=== PATIENT | female | born 1950 | race Caucasian/White ===

== ENCOUNTER → 2016-06-14 | Outpatient (CLI) | payer MEDICARE, MEDICAID ==
[~2016-06-14] MED LIST: ASPI325T4; CEFP500T4 PO; DM/P295L13; LISI40TA; MTF500T; PRD20T PO; TRAM50TA2 PO; TRIA16.5 NS
--- NOTE | 2016-06-14 19:06 | Diagnostic Imaging Report ---
INDICATION: Digital mammogram bilateral screening. This study was compared to the prior exams of 03/27/14, 01/31/13 and 01/31/12. At this time, there are no current complaints. The current study was also evaluated with a Computer Aided Detection (CAD) system. FINDINGS: The fibroglandular tissue in both breasts is heterogeneously dense. This does limit the sensitivity of this exam. The previous study did show a small group of microcalcifications deep in the medial aspect of the right breast. These calcifications are somewhat more conspicuous on this exam but still have a generally benign appearance. There is no primary or secondary sign of malignancy involving either breast. IMPRESSION: 1. There is no evidence of malignancy. 2. The patient should have her annual bilateral screening mammogram on schedule in June of 2017. ACR BI-RADS Category 1: Negative. Result letter will be mailed to the patient. Note: At least 10% of breast cancer is not imaged by mammography. Dictated by: Dictated on workstation # [id number]
== END ==
LOC: RAD 10:04
PROVIDERS: ATTEND Nurse Practitioner Community Health
DX: Z12.31 Encounter for screening mammogram for malignant neoplasm of breast (principal)
CPT/HCPCS: 77067

== ENCOUNTER 2017-05-02 05:46 | Outpatient (CLI) | payer MEDICARE, MEDICAID ==
[~2017-05-02] VITALS: Ht 160 cm; Wt 77.1 kg
[2017-05-02] MEDS ORDERED: TRAM50TA2 PO (10:23)
[2017-05-02] MEDS ORDERED: ASPI-999 PO (10:23)
[2017-05-02] MEDS ORDERED: EXEN2VIA SQ (10:23)
[2017-05-02] MEDS ORDERED: ATOR20TA66 PO (10:23)
[2017-05-02] MEDS ORDERED: LISI-552 PO (10:24)
== END 2017-05-02 10:28 ==
LOC: PREOP 05:46
PROVIDERS: ATTEND Surgery
DX: Z01.818 Encounter for other preprocedural examination (principal); R19.5 Other fecal abnormalities

== ENCOUNTER 2017-05-08 10:04 | Day surgery (SDC) | payer MEDICARE, MEDICAID ==
[~2017-05-08] VITALS: Ht 160 cm; Wt 77.1 kg
[~2017-05-08 10:04] MED LIST changes: +ASPI-999 PO; +ATOR20TA66 PO; +EXEN2VIA SQ; +LISI-552 PO
[2017-05-08] MEDS ORDERED: NS IV 500 ML 500 ML IV PRN (10:11)
[2017-05-08] MEDS ORDERED: NS IV 500 ML 500 ML ONE (10:12)
--- OUTSIDE RECORDS SUMMARY | 2017-05-08 10:19 | XMS REPORT ---
Author Author YOUSIF LEWIS Organization [facility] Address [address] [place] [address] Care Team Providers Care Digital Data Analyst Name Role Phone YOUSIF LEWIS Unavailable PROBLEMS Type Condition ICD9-CM Code [id number] Code Onset Dates Condition Status SNOMED Code Problem Diabetes E11.9 Active 572035423 Problem Chronic pain syndrome G89.4 Active 477877305 Problem Eye exam normal Z01.00 Active 239393134 Problem Tobacco abuse Z72.0 Active 33332525 Problem Neuropathy G62.9 Active 304289476 ALLERGIES Substance Reaction Event Type Date Status N.K.D.A. Unknown Non Drug Allergy Feb, Unknown SOCIAL HISTORY No smoking Hx information available PLAN OF CARE Activity Details Follow Up 3 Months Reason:DM VITAL SIGNS Height 63 in 2016-02-24 Weight 168.2 lbs 2016-02-24 Temperature 98.3 degrees Fahrenheit 2016-02-24 Heart Rate 88 bpm 2016-02-24 Respiratory Rate 20 2016-02-24 BMI 29.79 kg/m2 2016-02-24 Blood pressure systolic 130 mmHg 2016-02-24 Blood pressure diastolic 80 mmHg 2016-02-24 MEDICATIONS Medication Instructions Dosage Frequency Start Date End Date Duration Status MetFORMIN HCl ER 500 MG Orally Once a day 1 tablet with evening meal 24h Nov, Active Aspir-81 81 MG Orally Once a day 1 tablet 24h Active MiraLax - Orally Once a day 17gm 24h Feb, Jun, 30 days Active Loratadine 10 mg 1 tablet by Oral route 1 time per day Dec, Active Bydureon 2 MG Subcutaneous once weekly 2mg Nov, Active tramadol 50 mg by oral route 2 times a day 2 tablets 12h May, 28 days Active Ibuprofen 600 MG Orally every 8 hours, PRN 1 tablet Nov, Active Lisinopril 20 mg 1 tablet by Oral route 1 time per day Apr, Active RESULTS Name Result Date Reference Range A1C (IN HOUSE) 2016-02-24 A1C IN HOUSE 6.2 4.3 - 5.6 % Previous A1c 8.8 Lot [id number] Exp date PROCEDURES Procedure Date Ordered Related Diagnosis Body Site GLYCATED HEMOGLOBIN TEST Feb 24, 2016 [facility] VISIT ESTABLISHED PATIENT Feb 24, 2016 Office Visit, Est Pt., Level 3 Feb 24, 2016 IMMUNIZATIONS No Known Immunizations
--- OUTSIDE RECORDS SUMMARY | 2017-05-08 10:19 | XMS REPORT ---
Author Author YOUSIF LEWIS [facility] Address [address] [place] [address] Care Team Providers Care Rn Integrity Name Role Phone YOUSIF LEWIS Unavailable PROBLEMS Type Condition ICD9-CM Code PAQ04-KT Code Onset Dates Condition Status SNOMED Code Problem Diabetes E11.9 Active 542592563 Problem Chronic pain syndrome G89.4 Active 613224122 Problem Eye exam normal Z01.00 Active 676355030 Problem Tobacco abuse Z72.0 Active 86295180 Problem Neuropathy G62.9 Active 668603325 ALLERGIES Unknown Allergies SOCIAL HISTORY No smoking Hx information available PLAN OF CARE VITAL SIGNS MEDICATIONS Unknown Medications RESULTS No Results PROCEDURES No Known procedures IMMUNIZATIONS No Known Immunizations
--- OUTSIDE RECORDS SUMMARY | 2017-05-08 10:20 | XMS REPORT ---
Author Author YOUSIF LEWIS Organization [employer] Address Unknown Phone Unavailable Care Team Providers Care Student Specialist Name Role Phone YOUSIF LEWIS CP Unavailable Allergies No Known Allergies Problems Problem Type Condition Code Onset Dates Condition Status Problem Type 2 diabetes mellitus without complication, without long-term current use of insulin E11.9 Active Problem Neuropathy G62.9 Active Problem Tobacco abuse Z72.0 Active Assessment Arthralgia, unspecified joint M25.50 Active Medications Medication Code System Code Instructions Start Date End Date Status Dosage tramadol NDC 0 50 mg by oral route 2 times a day May 27, 2014 2 tablets Results No Known Results Summary Purpose [employer] Submission
--- OUTSIDE RECORDS SUMMARY | 2017-05-08 10:20 | XMS REPORT ---
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
--- OUTSIDE RECORDS SUMMARY | 2017-05-08 10:20 | XMS REPORT ---
Author Author YOUSIF LEWIS Organization [employer] Address Unknown Phone Unavailable Care Team Providers Care Auto Service Station Attendant Name Role Phone YOUSIF LEWIS CP Unavailable [...] Status Dosage tramadol NDC 0 50 mg NEEDS AN APPT FOR FURTHER REFILLS May 27, 2014 take 1 tablet by Oral route 3 times per day as needed PRN pain Results No Known Results Summary Purpose [employer] Submission
--- OUTSIDE RECORDS SUMMARY | 2017-05-08 10:20 | XMS REPORT ---
Author Author YOUSIF LEWIS [facility] [employer] Address Unknown Phone Unavailable Care Team Providers Care Process Lead Name Role Phone YOUSIF LEWIS Unavailable Allergies, Adverse Reactions, Alerts Substance Reaction Event Type N.K.D.A. Info Not Available Non Drug Allergy Problems Problem Type Condition Code Onset Dates Condition Status Problem Type 2 diabetes mellitus without complication, without long-term current use of insulin E11.9 Active Problem Neuropathy G62.9 Active Problem Tobacco abuse Z72.0 Active Assessment Sinus headache R51 Active Assessment Essential hypertension I10 Active Assessment Diabetes E11.9 Active Assessment Arthralgia, unspecified joint M25.50 Active Medications Medication Code System Code Instructions Start Date End Date Status Dosage Lisinopril [facility] [address]-35 20 mg 1 TAB orally once a day Apr 25, 2014 1 tablet by Oral route 1 time per day Loratadine [facility] [address]-24 10 mg Dec 24, 2012 1 tablet by Oral route 1 time per day Ibuprofen [facility] [address]-46 600 MG Orally every 8 hours, PRN Nov 17, 2015 1 tablet Aspir-81 [facility] [address]-87 81 MG Orally Once a day 1 tablet Bydureon [facility] [address]-11 2 MG Subcutaneous once weekly Nov 17, 2015 2mg MetFORMIN HCl ER [facility] [address]-36 500 MG Orally Once a day Nov 17, 2015 2 tablet with evening meal tramadol ND 0 50 mg by oral route in AM and PM May 27, 2014 2 Procedures Procedure Coding System Code Date MICROALBUMIN, SEMIQUANT CPT-4 74827 Nov 17, 2015 [facility] VISIT ESTABLISHED PATIENT CPT-4 G0467 Nov 17, 2015 GLYCATED HEMOGLOBIN TEST CPT-4 00447 Nov 17, 2015 Office Visit, Est Pt., Level 3 CPT-4 99477 Nov 17, 2015 Vital Signs Date/Time: Nov 17, 2015 Cardiac Monitoring Heart Rate 104 bpm Weight 170.7 lbs Height 63 in BMI 30.23 Index Blood Pressure Diastolic 76 mmHg Blood Pressure Systolic 143 mmHg Results Name Result Date Reference Range Unit Abnormality Flag A1C (IN HOUSE) ----A1C IN HOUSE 8.8 20151117 4.3 - 5.6 % ----Previous A1c 9.3 20151117 ----Lot [id number] ----Exp date 20151117 MICROALBUMIN, URINE (IN HOUSE) ----Lot # [id number] [id number] ----CRE 200 mg/dL 20151117 ----Exp date 20151117 ----ALB 30 mg/L 20151117 ----Control normal 20151117 ----Control abnormal 20151117 ----A:C (IN HOUSE) <30 mg/g 20151117 ----Clarity clear 20151117 ----Color yellow 20151117 ----Lot # [id number] ----Exp date 20151117 ----MICROALBUMIN Normal 20151117 Summary Purpose eClinicalWorks Submission
--- OUTSIDE RECORDS SUMMARY | 2017-05-08 10:20 | XMS REPORT ---
Author Author YOUSIF LEWIS Organization [facility] Address [address] [place] [address] Care Team Providers Care Field Research Associate Name Role Phone YOUSIF LEWIS Unavailable PROBLEMS Type Condition ICD9-CM Code [id number] Code Onset Dates Condition Status SNOMED Code Problem Tobacco abuse Z72.0 Active 11686568 Problem Type 2 diabetes mellitus without complication, without long-term current use of insulin E11.9 Active 113101503 Assessment Arthralgia, unspecified joint M25.50 22 Nov, 2015 Active 20350045 Problem Neuropathy G62.9 Active 388661475 Problem Eye exam normal Z01.00 Active 184604918 ALLERGIES Unknown Allergies SOCIAL HISTORY No smoking Hx information available PLAN OF CARE VITAL SIGNS MEDICATIONS Medication Instructions Dosage Frequency Start Date End Date Duration Status tramadol 50 mg by oral route in AM and PM 2 May, Active RESULTS No Results PROCEDURES No Known procedures IMMUNIZATIONS No Known Immunizations
--- OUTSIDE RECORDS SUMMARY | 2017-05-08 10:20 | XMS REPORT ---
Author Author YOUSIF LEWIS [facility] [employer] Address Unknown Phone Unavailable Care Team Providers Care Organic Gardening Teacher Name Role Phone YOUSIF LEWIS CP Unavailable Allergies, Adverse Reactions, Alerts Substance Reaction Event Type N.K.D.A. Info Not Available Non Drug Allergy Problems Problem Type Condition Code Onset Dates Condition Status Assessment care home use of drug Z79.899 Active Assessment Breast cancer screening Z12.39 Active Problem PPV23 (PNEUMOVAX) DX V03.82 Active Problem Ingrowing nail 703.0 Active Problem Need for prophylactic vaccination and inoculation, Influenza V04.81 Active Assessment Diabetes E11.9 Active Assessment Encounter for immunization Z23 Active Problem Unspecified breast screening V76.10 Active Problem Nondependent tobacco use disorder 305.1 Active Medications Medication Code System Code Instructions Start Date End Date Status Dosage Aspir-81 [facility] [address]-19 81 MG Orally Once a day 1 tablet Lisinopril [facility] [address]-16 20 MG 1 TAB orally once a day Apr 25, 2014 1 tablet by Oral route 1 time per day Janumet [facility] [address]-65 50-500 MG Orally Twice a day #3 mo samples given Mar 26, 2015 1 tablet with meals tramadol [facility] 0 50 mg May 27, 2014 take 1 tablet by Oral route 3 times per day as needed PRN pain Procedures Procedure Coding System Code Date No Charge CPT-4 99815 Mar 26, 2015 [facility] CPT-4 NOBLL Mar 26, 2015 GLYCATED HEMOGLOBIN TEST CPT-4 02318 Mar 26, 2015 SINGLE IMMUNIZATION ADMIN CPT-4 78373 Mar 26, 2015 PCV 13 CPT-4 43444 Mar 26, 2015 IMMUNIZATION ADMIN, EACH ADD (please include units) CPT-4 96971 Mar 26, 2015 Office Visit, Est Pt., Level 3 CPT-4 93489 Mar 26, 2015 [facility] VISIT ESTABLISHED PATIENT CPT-4 G0467 Mar 26, 2015 FLUARIX QUAD (3 & UP)-GSK-2014 CPT-4 73123 Mar 26, 2015 VENIPUNCT, ROUTINE* CPT-4 69864 Mar 26, 2015 Vital Signs Date/Time: Mar 26, 2015 BMI 31.16 Index Weight 175.9 lbs Height 63 in Results Name Result Date Reference Range Unit Abnormality Flag AMERITOX LIPID PANEL ----LDL Cholesterol Calc 57 [id number] 0-99 mg/dL ----VLDL Cholesterol Jose 32 [id number] 5-40 mg/dL ----Cholesterol, Total 122 63610323 100-199 mg/dL ----HDL Cholesterol 33 91060829 >39 mg/dL L ----Triglycerides 158 81958254 0-149 mg/dL H A1C (IN HOUSE) ----A1C IN HOUSE 8.3 20150326 4.30 - 5.6 % ----Previous A1c 8.3 20150326 ----Lot [id number] ----Exp date [id number] ROUTINE VENIPUNCTURE CMP ----Potassium, Serum 4.8 20150326 3.5-5.2 mmol/L ----Sodium, Serum 137 [id number] 134-144 mmol/L ----BUN/Creatinine Ratio 17 20150326 11-26 ----eGFR If Africn Am 106 [id number] >59 mL/min/1.73 ----eGFR If NonAfricn Am 92 [id number] >59 mL/min/1.73 ----Creatinine, Serum 0.69 44680252 0.57-1.00 mg/dL ----BUN 12 20150326 8-27 mg/dL ----Glucose, Serum 270 29346104 65-99 mg/dL H ----AST (SGOT) 27 [id number] 0-40 IU/L ----Globulin, Total 2.3 17806939 1.5-4.5 g/dL ----ALT (SGPT) 29 20150326 0-32 IU/L ----A/G Ratio 1.9 49947825 1.1-2.5 ----Bilirubin, Total 0.7 74720809 0.0-1.2 mg/dL ----Alkaline Phosphatase, S 71 20150326 39-117 IU/L ----Carbon Dioxide, Total 26 20150326 18-29 mmol/L ----Calcium, Serum 9.5 20150326 8.7-10.3 mg/dL ----Protein, Total, Serum 6.6 20150326 6.0-8.5 g/dL ----Albumin, Serum 4.3 20150326 3.6-4.8 g/dL ----Chloride, Serum 98 20150326 97-108 mmol/L Immunizations Vaccine Administration Date FLUARIX QUAD (3 & UP)-GSK-2014Mar 26, 2015 PCV Mar 26, 2015 Summary Purpose eClinicalWorks Submission
--- OUTSIDE RECORDS SUMMARY | 2017-05-08 10:20 | XMS REPORT ---
Author Author YOUSIF LEWIS Organization [employer] Address Unknown Phone Unavailable Care Team Providers Care Waste Examiner Name Role Phone YOUSIF LEWIS CP Unavailable [...]
--- OUTSIDE RECORDS SUMMARY | 2017-05-08 10:20 | XMS REPORT ---
Author Author YOUSIF LEWIS Organization [facility] Address [address] [place] [address] Care Team Providers Care Agricultural Economics Teacher Name Role Phone YOUSIF LEWIS Unavailable PROBLEMS Type Condition ICD9-CM Code [id number] Code Onset Dates Condition Status SNOMED Code Problem Diabetes E11.9 Active 894350217 Problem Chronic pain syndrome G89.4 Active 920463913 Problem Eye exam normal Z01.00 Active 795783072 Problem Tobacco abuse Z72.0 Active 76342621 Problem Neuropathy G62.9 Active 071737888 ALLERGIES Unknown Allergies SOCIAL HISTORY No smoking Hx information available PLAN OF CARE VITAL SIGNS MEDICATIONS Medication Instructions Dosage Frequency Start Date End Date Duration Status Tramadol HCl 50 mg Orally 2 times a day 2 tablet 12h Mar, Mar, 28 days Active RESULTS No Results PROCEDURES No Known procedures IMMUNIZATIONS No Known Immunizations
--- OUTSIDE RECORDS SUMMARY | 2017-05-08 10:20 | XMS REPORT ---
Author Author YOUSIF LEWIS [facility] e[employer] Address Unknown Phone Unavailable Care Team Providers Care Auto Refinisher Name Role Phone YOUSIF LEWIS CP Unavailable Allergies, Adverse Reactions, Alerts Substance Reaction Event Type N.K.D.A. Info Not Available Non Drug Allergy Problems Problem Type Condition ICD-9 Code Onset Dates Condition Status Problem PPV23 (PNEUMOVAX) DX V03.82 Active Problem Ingrowing nail 703.0 Active Problem Need for prophylactic vaccination and inoculation, Influenza V04.81 Active Assessment Diabetes mellitus 250.00 Active Assessment Nicotine addiction 305.1 Active Problem Unspecified breast screening V76.10 Active Problem Nondependent tobacco use disorder 305.1 Active Medications Medication Code System Code Instructions Start Date End Date Status Dosage Actos [facility] [address]-61 30 MG Orally Once a day Dec 03, 2014 1 tablet Lisinopril [facility] [address]-02 20 mg 1 TAB orally once a day Apr 25, 2014 1 tablet by Oral route 1 time per day Aspir-81 [facility] [address]-03 81 MG Orally Once a day 1 tablet Nicoderm [facility] [address]-75 7 MG/24HR Transdermal Once a day Dec 03, 2014 Jan 02, 2015 1 patch to skin Nicoderm [facility] [address]-78 14 MG/24HR Transdermal Once a day Dec 03, 2014 Jan 02, 2015 1 patch to skin tramadol [facility] 0 50 mg ABSOLUTE LAST REFILL PT MUST HAVE AN APPT May 27, 2014 take 1 tablet by Oral route 3 times per day as needed PRN pain Nicoderm [facility] [address]-12 21 MG/24HR Transdermal Once a day Dec 03, 2014 Jan 02, 2015 1 patch to skin Procedures Procedure Coding System Code Date LAB NOT BILLED BY [facility] CPT-4 NOBLL Dec 03, 2014 VENIPUNCT, ROUTINE* CPT-4 68936 Dec 03, 2014 GLYCATED HEMOGLOBIN TEST CPT-4 93040 Dec 03, 2014 Office Visit, Est Pt., Level 3 CPT-4 59071 Dec 03, 2014 [facility] VISIT ESTABLISHED PATIENT CPT-4 G0467 Dec 03, 2014 Vital Signs Date/Time: Dec 03, 2014 Temperature 98.9 F Weight 171 lbs Height 63 in BMI 30.29 Index Blood Pressure Diastolic 80 mmHg Blood Pressure Systolic 138 mmHg Cardiac Monitoring Heart Rate 70 bpm Results Name Result Date Reference Range Unit Abnormality Flag ROUTINE VENIPUNCTURE A1C (IN HOUSE) Summary Purpose eClinicalWorks Submission
--- OUTSIDE RECORDS SUMMARY | 2017-05-08 10:20 | XMS REPORT ---
Author Author YOUSIF LEWIS Organization [facility] Address [address] [place] [address] Care Team Providers Care Sorting Machine Attendant Name Role Phone YOUSIF LEWIS Unavailable PROBLEMS Type Condition ICD9-CM Code CQM06-KU Code Onset Dates Condition Status SNOMED Code Problem Diabetes E11.9 Active 238976186 Problem Chronic pain syndrome G89.4 Active 959080861 Problem Eye exam normal Z01.00 Active 619469390 Problem Tobacco abuse Z72.0 Active 93569738 Problem Neuropathy G62.9 Active 739860262 ALLERGIES No Information SOCIAL HISTORY Never Assessed PLAN OF CARE VITAL SIGNS MEDICATIONS Medication Instructions Dosage Frequency Start Date End Date Duration Status Tramadol HCl 50 MG Orally 2 times a day 2 tablet 12h Mar, 28 days Active RESULTS No Results PROCEDURES No Known procedures IMMUNIZATIONS No Known Immunizations MEDICAL (GENERAL) HISTORY Type Description Date Medical History Eye Exam 11/2014 WNL Surgical History hysterectomy, bladder lift Surgical History cholecystectomy
--- OUTSIDE RECORDS SUMMARY | 2017-05-08 10:20 | XMS REPORT ---
Author Author YOUSIF LEWIS [facility] Address [address] [place] [address] Care Team Providers Care Ad Operations Specialist Name Role Phone YOUSIF LEWIS Unavailable PROBLEMS Type Condition ICD9-CM Code IZU07-CS Code Onset Dates Condition Status SNOMED Code Problem Diabetes E11.9 Active 626270321 Problem Chronic pain syndrome G89.4 Active 041349443 Problem Eye exam normal Z01.00 Active 100320539 Problem Tobacco abuse Z72.0 Active 18821376 Problem Neuropathy G62.9 Active 518277420 ALLERGIES Unknown Allergies SOCIAL HISTORY No smoking Hx information available PLAN OF CARE VITAL SIGNS MEDICATIONS Unknown Medications RESULTS Name Result Date Reference Range AMERITOX 2016-04-14 PROCEDURES Procedure Date Ordered Related Diagnosis Body Site No Charge Apr 14, 2016 IMMUNIZATIONS No Known Immunizations
--- OUTSIDE RECORDS SUMMARY | 2017-05-08 10:20 | XMS REPORT ---
Author Author YOUSIF LEWIS Organization [employer] Address Unknown Phone Unavailable Care Team Providers Care Outside Dealer Sales Representative Name Role Phone YOUSIF LEWIS CP Unavailable [...]
--- OUTSIDE RECORDS SUMMARY | 2017-05-08 10:20 | XMS REPORT ---
Author Author YOUSIF LEWIS Organization [employer] Address Unknown Phone Unavailable Care Team Providers Care Shingle Shearing Machine Operator Name Role Phone YOUSIF LEWIS CP Unavailable Allergies No Known Allergies Problems Problem Type Condition ICD-9 Code Onset Dates Condition Status Problem PPV23 (PNEUMOVAX) DX V03.82 Active Problem Ingrowing nail 703.0 Active Problem Need for prophylactic vaccination and inoculation, Influenza V04.81 Active Problem Unspecified breast screening V76.10 Active Problem Nondependent tobacco use disorder 305.1 Active Medications No Known Medications Results No Known Results Summary Purpose eClinicalWorks Submission
--- OUTSIDE RECORDS SUMMARY | 2017-05-08 10:20 | XMS REPORT ---
Author Author YOUSIF LEWIS Organization [facility] Address [address] [place] [address] Care Team Providers Care Municipal Court Judge Name Role Phone YOUSIF LEWIS Unavailable PROBLEMS Type Condition ICD9-CM Code MLW54-QQ Code Onset Dates Condition Status SNOMED Code Problem Diabetes E11.9 Active 511814929 Problem Chronic pain syndrome G89.4 Active 989018804 Problem Eye exam normal Z01.00 Active 978038940 Problem Tobacco abuse Z72.0 Active 04357353 Problem Neuropathy G62.9 Active 586767160 ALLERGIES No Information SOCIAL HISTORY Never Assessed PLAN OF CARE VITAL SIGNS MEDICATIONS Medication Instructions Dosage Frequency Start Date End Date Duration Status Bydureon 2 MG Subcutaneous once weekly 2mg May, July, 90 days Active RESULTS No Results PROCEDURES No Known procedures IMMUNIZATIONS No Known Immunizations MEDICAL (GENERAL) HISTORY Type Description Date Medical History Eye Exam 11/2014 WNL Surgical History hysterectomy, bladder lift Surgical History cholecystectomy
--- OUTSIDE RECORDS SUMMARY | 2017-05-08 10:20 | XMS REPORT ---
Author Author YOUSIF LEWIS Organization [employer] Address Unknown Phone Unavailable Care Team Providers Care Professional Bondsman Name Role Phone YOUSIF LEWIS CP Unavailable Allergies No Known Allergies Problems Problem Type Condition Code Onset Dates Condition Status Problem Type 2 diabetes mellitus without complication, without long-term current use of insulin E11.9 Active Problem Neuropathy G62.9 Active Problem Tobacco abuse Z72.0 Active Medications No Known Medications Results No Known Results Summary Purpose eClinicalWorks Submission
--- OUTSIDE RECORDS SUMMARY | 2017-05-08 10:20 | XMS REPORT ---
Author Author YOUSIF LEWIS [facility] e[employer] Address Unknown Phone Unavailable Care Team Providers Care Plant Clerk Name Role Phone YOUSIF LEWIS CP Unavailable Allergies No Known Allergies Problems Problem Type Condition Code Onset Dates Condition Status Problem Type 2 diabetes mellitus without complication, without long-term current use of insulin E11.9 Active Problem Neuropathy G62.9 Active Problem Tobacco abuse Z72.0 Active Assessment Neuropathy G62.9 Active Medications Medication Code System Code Instructions Start Date End Date Status Dosage tramadol NDC 0 50 mg by oral route 3 times a day May 27, 2014 1 tablet as needed Results No Known Results Summary Purpose eClinicalWorks Submission
--- OUTSIDE RECORDS SUMMARY | 2017-05-08 10:21 | XMS REPORT ---
Author Author YOUSIF LEWIS Organization [facility] Address [address] [place] [address] Care Team Providers Care Barrel Waterer Name Role Phone YOUSIF LEWIS Unavailable PROBLEMS Type Condition ICD9-CM Code RFF81-HS Code Onset Dates Condition Status SNOMED Code Problem Diabetes E11.9 Active 356227682 Problem Chronic pain syndrome G89.4 Active 650680111 Problem Eye exam normal Z01.00 Active 384673411 Problem Tobacco abuse Z72.0 Active 32801128 Problem Neuropathy G62.9 Active 579899266 ALLERGIES Unknown Allergies SOCIAL HISTORY No smoking Hx information available PLAN OF CARE VITAL SIGNS MEDICATIONS Medication Instructions Dosage Frequency Start Date End Date Duration Status Lipitor 20 mg Orally Once a day 1 tablet 24h 13 Jan, 2016 Active RESULTS No Results PROCEDURES No Known procedures IMMUNIZATIONS No Known Immunizations
--- OUTSIDE RECORDS SUMMARY | 2017-05-08 10:21 | XMS REPORT ---
Author Author YOUSIF LEWIS Organization [employer] Address Unknown Phone Unavailable Care Team Providers Care Photographic Reproduction Technician Name Role Phone YOUSIF LEWIS CP Unavailable [...] Start Date End Date Status Dosage Actos [facility] [address]-67 30 MG Orally Once a day Dec 03, 2014 1 tablet Results No Known Results Summary Purpose eClinicalWorks Submission
--- OUTSIDE RECORDS SUMMARY | 2017-05-08 10:21 | XMS REPORT ---
Author Author YOUSIF LEWIS [facility] eClinical[employer] Address Unknown Phone Unavailable Care Team Providers Care Search Engine Optimization Consultant Name Role Phone YOUSIF LEWIS CP Unavailable [...]
--- OUTSIDE RECORDS SUMMARY | 2017-05-08 10:21 | XMS REPORT ---
Author Author YOUSIF LEWIS Organization [facility] Address [address] [place] [address] Care Team Providers Care Production Cook Name Role Phone YOUSIF LEWIS Unavailable PROBLEMS Type Condition ICD9-CM Code [id number] Code Onset Dates Condition Status SNOMED Code Problem Diabetes E11.9 Active 296825506 Problem Chronic pain syndrome G89.4 Active 950711855 Problem Eye exam normal Z01.00 Active 463646842 Problem Tobacco abuse Z72.0 Active 69696395 Problem Neuropathy G62.9 Active 977906690 ALLERGIES No Information SOCIAL HISTORY Never Assessed [...]
--- OUTSIDE RECORDS SUMMARY | 2017-05-08 10:21 | XMS REPORT ---
Author Author YOUSIF LEWIS Organization [employer] Address Unknown Phone Unavailable Care Team Providers Care Director Housekeeping Name Role Phone YOUSIF LEWIS CP Unavailable [...]
--- OUTSIDE RECORDS SUMMARY | 2017-05-08 10:21 | XMS REPORT ---
Author Author YOUSIF LEWIS Organization [facility] Address [address] [place] [address] Care Team Providers Care Leather Products Supervisor Name Role Phone YOUSIF LEWIS Unavailable PROBLEMS Type Condition ICD9-CM Code [id number] Code Onset Dates Condition Status SNOMED Code Problem Diabetes E11.9 Active 504138780 Problem Chronic pain syndrome G89.4 Active 637203004 Problem Eye exam normal Z01.00 Active 891288990 Problem Tobacco abuse Z72.0 Active 44502247 Problem Neuropathy G62.9 Active [id number] ALLERGIES No Information SOCIAL HISTORY Never Assessed [...]
--- OUTSIDE RECORDS SUMMARY | 2017-05-08 10:21 | XMS REPORT ---
Author Author YOUSIF LEWIS Organization [employer] Address Unknown Phone Unavailable Care Team Providers Care Collar Baster Jumpbasting Name Role Phone YOUSIF LEWIS CP Unavailable [...]
--- OUTSIDE RECORDS SUMMARY | 2017-05-08 10:22 | XMS REPORT | Continuity of Care Document ---
Author Author [facility] Organization [facility] Address Unknown Phone Unavailable Allergies Active Description Code Type Severity Reaction Onset Reported/Identified Relationship to Patient Clinical Status Yes No Known Drug Allergies [id number] Drug Allergy Unknown N/A 07/26/2009 Yes glucotrol Drug Allergy 09/24/2009 Yes glucotrol Drug Allergy N/A N/A 09/24/2009 Medications There is no data. Problems Date Dx Coded Attending Type Code Diagnosis Diagnosed By 07/10/2008 YOUSIF LEWIS APRN 250.00 DIABETES MELLITUS 07/10/2008 YOUSIF LEWIS APRN 401.1 ESSENTIAL HYPERTENSION BENIGN 07/10/2008 YOUSIF LEWIS APRN 724.2 lower back pain 07/10/2008 YOUSIF LEWIS APRN 733.00 OSTEOPOROSIS 07/10/2008 YOUSIF LEWIS APRN V15.09 allergy to pollens 07/10/2008 YOUSIF LEWIS APRN 250.00 DIABETES MELLITUS 07/10/2008 YOUSIF LEWIS APRN 401.1 ESSENTIAL HYPERTENSION BENIGN 07/10/2008 YOUSIF LEWIS APRN 724.2 lower back pain 07/10/2008 YOUSIF LEWIS APRN 733.00 OSTEOPOROSIS 07/10/2008 YOUSIF LEWIS APRN V15.09 allergy to pollens 07/10/2008 250.00 DIABETES MELLITUS 07/10/2008 401.1 ESSENTIAL HYPERTENSION BENIGN 07/10/2008 724.2 lower back pain 07/10/2008 733.00 OSTEOPOROSIS 07/10/2008 V15.09 allergy to pollens 07/10/2008 250.00 DIABETES MELLITUS 07/10/2008 401.1 ESSENTIAL HYPERTENSION BENIGN 07/10/2008 724.2 lower back pain 07/10/2008 733.00 OSTEOPOROSIS 07/10/2008 V15.09 allergy to pollens 07/10/2008 DEBBIE MECHANICAL OPERATOR, YOUSIF S 250.00 DIABETES MELLITUS 07/10/2008 DEBBIE MECHANICAL OPERATOR, YOUSIF S 401.1 ESSENTIAL HYPERTENSION BENIGN 07/10/2008 DEBBIE MECHANICAL OPERATOR, YOUSIF S 724.2 lower back pain 07/10/2008 DEBBIE MECHANICAL OPERATOR, YOUSIF S 733.00 OSTEOPOROSIS 07/10/2008 DEBBIE MECHANICAL OPERATOR, YOUSIF S V15.09 allergy to pollens 07/10/2008 DEBBIE MECHANICAL OPERATOR, YOUSIF S 250.00 DIABETES MELLITUS 07/10/2008 DEBBIE MECHANICAL OPERATOR, YOUSIF S 401.1 ESSENTIAL HYPERTENSION BENIGN 07/10/2008 DEBBIE MECHANICAL OPERATOR, YOUSIF S 724.2 lower back pain 07/10/2008 DEBBIE MECHANICAL OPERATOR, YOUSIF S 733.00 OSTEOPOROSIS 07/10/2008 DEBBIE MECHANICAL OPERATOR, YOUSIF S V15.09 allergy to pollens 07/10/2008 DEBBIE MECHANICAL OPERATOR, YOUSIF S 250.00 DIABETES MELLITUS 07/10/2008 DEBBIE MECHANICAL OPERATOR, YOUSIF S 401.1 ESSENTIAL HYPERTENSION BENIGN 07/10/2008 DEBBIE MECHANICAL OPERATOR, YOUSIF S 724.2 lower back pain 07/10/2008 DEBBIE MECHANICAL OPERATOR, YOUSIF S 733.00 OSTEOPOROSIS 07/10/2008 DEBBIE MECHANICAL OPERATOR, YOUSIF S V15.09 allergy to pollens 07/10/2008 DEBBIE MECHANICAL OPERATOR, YOUSIF S 250.00 DIABETES MELLITUS 07/10/2008 DEBBIE MECHANICAL OPERATOR, YOUSIF S 401.1 ESSENTIAL HYPERTENSION BENIGN 07/10/2008 DEBBIE MECHANICAL OPERATOR, YOUSIF S 724.2 lower back pain 07/10/2008 DEBBIE MECHANICAL OPERATOR, YOUSIF S 733.00 OSTEOPOROSIS 07/10/2008 DEBBIE MECHANICAL OPERATOR, YOUSIF S V15.09 allergy to pollens 07/10/2008 DEBBIE MECHANICAL OPERATOR, YOUSIF S 250.00 DIABETES MELLITUS 07/10/2008 DEBBIE MECHANICAL OPERATOR, YOUSIF S 401.1 ESSENTIAL HYPERTENSION BENIGN 07/10/2008 DEBBIE MECHANICAL OPERATOR, YOUSIF S 724.2 lower back pain 07/10/2008 DEBBIE MECHANICAL OPERATOR, YOUSIF S 733.00 OSTEOPOROSIS 07/10/2008 DEBBIE MECHANICAL OPERATOR, YOUSIF S V15.09 allergy to pollens 07/10/2008 DEBBIE MECHANICAL OPERATOR, YOUSIF S 250.00 DIABETES MELLITUS 07/10/2008 DEBBIE MECHANICAL OPERATOR, YOUSIF S 401.1 ESSENTIAL HYPERTENSION BENIGN 07/10/2008 DEBBIE MECHANICAL OPERATOR, YOUSIF S 724.2 lower back pain 07/10/2008 DEBBIE MECHANICAL OPERATOR, YOUSIF S 733.00 OSTEOPOROSIS 07/10/2008 DEBBIE MECHANICAL OPERATOR, YOUSIF S V15.09 allergy to pollens 07/10/2008 DEBBIE MECHANICAL OPERATOR, YOUSIF S 250.00 DIABETES MELLITUS 07/10/2008 DEBBIE MECHANICAL OPERATOR, YOUSIF S 401.1 ESSENTIAL HYPERTENSION BENIGN 07/10/2008 DEBBIE MECHANICAL OPERATOR, YOUSIF S 724.2 lower back pain 07/10/2008 DEBBIE MECHANICAL OPERATOR, YOUSIF S 733.00 OSTEOPOROSIS 07/10/2008 DEBBIE MECHANICAL OPERATOR, YOUSIF S V15.09 allergy to pollens 07/10/2008 DEBBIE MECHANICAL OPERATOR, YOUSIF S 250.00 DIABETES MELLITUS 07/10/2008 DEBBIE MECHANICAL OPERATOR, YOUSIF S 401.1 ESSENTIAL HYPERTENSION BENIGN 07/10/2008 DEBBIE MECHANICAL OPERATOR, YOUSIF S 724.2 lower back pain 07/10/2008 DEBBIE MECHANICAL OPERATOR, YOUSIF S 733.00 OSTEOPOROSIS 07/10/2008 DEBBIE MECHANICAL OPERATOR, YOUSIF S V15.09 allergy to pollens 07/10/2008 DEBBIE MECHANICAL OPERATOR, YOUSIF S 250.00 DIABETES MELLITUS 07/10/2008 DEBBIE MECHANICAL OPERATOR, YOUSIF S 401.1 ESSENTIAL HYPERTENSION BENIGN 07/10/2008 DEBBIE MECHANICAL OPERATOR, YOUSIF S 724.2 lower back pain 07/10/2008 DEBBIE MECHANICAL OPERATOR, YOUSIF S 733.00 OSTEOPOROSIS 07/10/2008 DEBBIE MECHANICAL OPERATOR, YOUSIF S V15.09 ALLERGY TO POLLENS 07/10/2008 DEBBIE MECHANICAL OPERATOR, YOUSIF S 250.00 DIABETES MELLITUS 07/10/2008 DEBBIE MECHANICAL OPERATOR, YOUSIF S 401.1 ESSENTIAL HYPERTENSION BENIGN 07/10/2008 DEBBIE MECHANICAL OPERATOR, YOUSIF S 724.2 lower back pain 07/10/2008 DEBBIE MECHANICAL OPERATOR, YOUSIF S 733.00 OSTEOPOROSIS 07/10/2008 DEBBIE MECHANICAL OPERATOR, YOUSIF S V15.09 ALLERGY TO POLLENS 01/28/2011 DEBBIE MECHANICAL OPERATOR, YOUSIF S 110.1 ONYCHOMYCOSIS 01/28/2011 DEBBIE MECHANICAL OPERATOR, YOUSIF S 356.9 NEUROPATHY 01/28/2011 DEBBIE MECHANICAL OPERATOR, YOUSIF S 703.8 ONYCHOCRYPTOSIS 01/28/2011 DEBBIE MECHANICAL OPERATOR, YOUSIF S 110.1 ONYCHOMYCOSIS 01/28/2011 DEBBIE MECHANICAL OPERATOR, YOUSIF S 356.9 NEUROPATHY 01/28/2011 DEBBIE MECHANICAL OPERATOR, YOUSIF S 703.8 ONYCHOCRYPTOSIS 01/28/2011 110.1 ONYCHOMYCOSIS 01/28/2011 356.9 NEUROPATHY 01/28/2011 703.8 ONYCHOCRYPTOSIS 01/28/2011 110.1 ONYCHOMYCOSIS 01/28/2011 356.9 NEUROPATHY 01/28/2011 703.8 ONYCHOCRYPTOSIS 01/28/2011 DEBBIE MECHANICAL OPERATOR, YOUSIF S 110.1 ONYCHOMYCOSIS 01/28/2011 DEBBIE SANTAMARIAN, YOUSIF S 356.9 NEUROPATHY 01/28/2011 DEBBIE MECHANICAL OPERATOR, YOUSIF S 703.8 ONYCHOCRYPTOSIS 01/28/2011 DEBBIE MECHANICAL OPERATOR, YOUSIF S 110.1 ONYCHOMYCOSIS 01/28/2011 DEBBIE MECHANICAL OPERATOR, YOUSIF S 356.9 NEUROPATHY 01/28/2011 DEBBIE MECHANICAL OPERATOR, YOUSIF S 703.8 ONYCHOCRYPTOSIS 01/28/2011 DEBBIE MECHANICAL OPERATOR, YOUSIF S 110.1 ONYCHOMYCOSIS 01/28/2011 DEBBIE MECHANICAL OPERATOR, YOUSIF S 356.9 NEUROPATHY 01/28/2011 DEBBIE MECHANICAL OPERATOR, YOUSIF S 703.8 ONYCHOCRYPTOSIS 01/28/2011 DEBBIE MECHANICAL OPERATOR, YOUSIF S 110.1 ONYCHOMYCOSIS 01/28/2011 DEBBIE MECHANICAL OPERATOR, YOUSIF S 356.9 NEUROPATHY 01/28/2011 DEBBIE MECHANICAL OPERATOR, YOUSIF S 703.8 ONYCHOCRYPTOSIS 01/28/2011 DEBBIE MECHANICAL OPERATOR, YOUSIF S 110.1 ONYCHOMYCOSIS 01/28/2011 DEBBIE MECHANICAL OPERATOR, YOUSIF S 356.9 NEUROPATHY 01/28/2011 DEBBIE MECHANICAL OPERATOR, YOUSIF S 703.8 ONYCHOCRYPTOSIS 01/28/2011 DEBBIE MECHANICAL OPERATOR, YOUSIF S 110.1 ONYCHOMYCOSIS 01/28/2011 DEBBIE MECHANICAL OPERATOR, YOUSIF S 356.9 NEUROPATHY 01/28/2011 DEBBIE MECHANICAL OPERATOR, YOUSIF S 703.8 ONYCHOCRYPTOSIS 01/28/2011 DEBBIE MECHANICAL OPERATOR, YOUSIF S 110.1 ONYCHOMYCOSIS 01/28/2011 DEBBIE MECHANICAL OPERATOR, YOUSIF S 356.9 NEUROPATHY 01/28/2011 DEBBIE MECHANICAL OPERATOR, YOUSIF S 703.8 ONYCHOCRYPTOSIS 01/28/2011 DEBBIE MECHANICAL OPERATOR, YOUSIF S 110.1 ONYCHOMYCOSIS 01/28/2011 DEBBIE MECHANICAL OPERATOR, YOUSIF S 356.9 NEUROPATHY 01/28/2011 DEBBIE MECHANICAL OPERATOR, YOUSIF S 703.8 ONYCHOCRYPTOSIS 01/28/2011 DEBBIE MECHANICAL OPERATOR, YOUSIF S 110.1 ONYCHOMYCOSIS 01/28/2011 DEBBIE MECHANICAL OPERATOR, YOUSIF S 356.9 NEUROPATHY 01/28/2011 DEBBIE MECHANICAL OPERATOR, YOUSIF S 703.8 ONYCHOCRYPTOSIS 01/28/2011 DEBBIE MECHANICAL OPERATOR, YOUSIF S 110.1 ONYCHOMYCOSIS 01/28/2011 DEBBIE MECHANICAL OPERATOR, YOUSIF S 356.9 NEUROPATHY 01/28/2011 DEBBIE MECHANICAL OPERATOR, YOUSIF S 703.8 ONYCHOCRYPTOSIS 03/15/2011 JUSTINO LEWIS APRNNDA S V03.82 PPV23 (PNEUMOVAX) DX 03/15/2011 YOUSIF LEWIS APRN S V04.81 FLU DX (MEDICARE ONLY) 03/15/2011 BETZAIDA LEWIS APRNA S V03.82 PPV23 (PNEUMOVAX) DX 03/15/2011 DEBBIE MECHANICAL OPERATOR, YOUSIF S V04.81 FLU DX (MEDICARE ONLY) 03/15/2011 V03.82 PPV23 ( PNEUMOVAX) DX 03/15/2011 V04.81 FLU DX ( MEDICARE ONLY) 03/15/2011 V03.82 PPV23 ( PNEUMOVAX) DX 03/15/2011 V04.81 FLU DX ( MEDICARE ONLY) 03/15/2011 DEBBIE MECHANICAL OPERATOR, YOUSIF S V03.82 PPV23 (PNEUMOVAX) DX 03/15/2011 DEBBIE MECHANICAL OPERATOR, YOUSIF S V04.81 FLU DX (MEDICARE ONLY) 03/15/2011 DEBBIE MECHANICAL OPERATOR, YOUSIF S V03.82 PPV23 (PNEUMOVAX) DX 03/15/2011 DEBBIE MECHANICAL OPERATOR, YOUSIF S V04.81 FLU DX (MEDICARE ONLY) 03/15/2011 DEBBIE MECHANICAL OPERATOR, YOUSIF S V03.82 PPV23 (PNEUMOVAX) DX 03/15/2011 DEBBIE MECHANICAL OPERATOR, YOUSIF S V04.81 FLU DX (MEDICARE ONLY) 03/15/2011 DEBBIE MECHANICAL OPERATOR, YOUSIF S V03.82 PPV23 (PNEUMOVAX) DX 03/15/2011 DEBBIE MECHANICAL OPERATOR, YOUSIF S V04.81 FLU DX (MEDICARE ONLY) 03/15/2011 DEBBIE MECHANICAL OPERATOR, YOUSIF S V03.82 PPV23 (PNEUMOVAX) DX 03/15/2011 DEBBIE MECHANICAL OPERATOR, YOUSIF S V04.81 FLU DX (MEDICARE ONLY) 03/15/2011 DEBBIE MECHANICAL OPERATOR, YOUSIF S V03.82 PPV23 (PNEUMOVAX) DX 03/15/2011 DEBBIE MECHANICAL OPERATOR, YOUSIF S V04.81 FLU DX (MEDICARE ONLY) 03/15/2011 DEBBIE MECHANICAL OPERATOR, YOUSIF S V03.82 PPV23 (PNEUMOVAX) DX 03/15/2011 DEBBIE MECHANICAL OPERATOR, YOUSIF S V04.81 FLU DX (MEDICARE ONLY) 03/15/2011 DEBBIE MECHANICAL OPERATOR, YOUSIF S V03.82 PPV23 (PNEUMOVAX) DX 03/15/2011 DEBBIE MECHANICAL OPERATOR, YOUSIF S V04.81 FLU DX (MEDICARE ONLY) 03/15/2011 DEBBIE MECHANICAL OPERATOR, YOUSIF S V03.82 PPV23 (PNEUMOVAX) DX 03/15/2011 DEBBIE MECHANICAL OPERATOR, YOUSIF S V04.81 FLU DX (MEDICARE ONLY) 03/15/2011 DEBBIE MECHANICAL OPERATOR, YOUSIF S V03.82 PPV23 (PNEUMOVAX) DX 03/15/2011 DEBBIE MECHANICAL OPERATOR, YOUSIF S V04.81 FLU DX (MEDICARE ONLY) 01/17/2012 DEBBIE MECHANICAL OPERATOR, YOUSIF S V76.10 BREAST CANCER SCREENING 01/17/2012 DEBBIE MECHANICAL OPERATOR, YOUSIF S V76.10 BREAST CANCER SCREENING 01/17/2012 V76.10 BREAST CANCER SCREENING 01/17/2012 V76.10 BREAST CANCER SCREENING 01/17/2012 DEBBIE MECHANICAL OPERATOR, YOUSIF S V76.10 BREAST CANCER SCREENING 01/17/2012 DEBBIE MECHANICAL OPERATOR, YOUSIF S V76.10 BREAST CANCER SCREENING 01/17/2012 DEBBIE MECHANICAL OPERATOR, YOUSIF S V76.10 BREAST CANCER SCREENING 01/17/2012 DEBBIE MECHANICAL OPERATOR, YOUSIF S V76.10 BREAST CANCER SCREENING 01/17/2012 DEBBIE MECHANICAL OPERATOR, YOUSIF S V76.10 BREAST CANCER SCREENING 01/17/2012 DEBBIE MECHANICAL OPERATOR, YOUSIF S V76.10 BREAST CANCER SCREENING 01/17/2012 DEBBIE MECHANICAL OPERATOR, YOUISF S V76.10 BREAST CANCER SCREENING 01/17/2012 DEBBIE MECHANICAL OPERATOR, YOUSIF S V76.10 BREAST CANCER SCREENING 01/17/2012 DEBBIE MECHANICAL OPERATOR, YOUSIF S V76.10 BREAST CANCER SCREENING 01/17/2012 DEBBIE MECHANICAL OPERATOR, YOUSIF S V76.10 BREAST CANCER SCREENING 03/15/2012 DEBBIE MECHANICAL OPERATOR, YOUSIF S 703.0 INGROWING NAIL 03/15/2012 703.0 INGROWING NAIL 03/15/2012 703.0 INGROWING NAIL 03/15/2012 DEBBIE MECHANICAL OPERATOR, YOUSIF S 703.0 INGROWING NAIL 03/15/2012 DEBBIE MECHANICAL OPERATOR, YOUSIF S 703.0 INGROWING NAIL 03/15/2012 DEBBIE MECHANICAL OPERATOR, YOUSIF S 703.0 INGROWING NAIL 03/15/2012 DEBBIE MECHANICAL OPERATOR, YOUSIF S 703.0 INGROWING NAIL 03/15/2012 DEBBIE MECHANICAL OPERATOR, YOUSIF S 703.0 INGROWING NAIL 03/15/2012 DEBBIE MECHANICAL OPERATOR, YOUSIF S 703.0 INGROWING NAIL 03/15/2012 DEBBIE MECHANICAL OPERATOR, YOUSIF S 703.0 INGROWING NAIL 03/15/2012 DEBBIE MECHANICAL OPERATOR, YOUSIF S 703.0 INGROWING NAIL 03/15/2012 DEBBIE MECHANICAL OPERATOR, YOUSIF S 703.0 INGROWING NAIL 03/15/2012 DEBBIE MECHANICAL OPERATOR, YOUSIF S 703.0 INGROWING NAIL 03/24/2012 Ot 708.9 URTICARIA NOS 03/24/2012 Ot 782.1 NONSPECIF SKIN ERUPT NEC 08/20/2013 DEBBIE SAAB, YOUSIF S 305.1 NONDEPENDENT TOBACCO USE DISORDER 08/20/2013 DEBBIE SAAB, YOUSIF S 305.1 NONDEPENDENT TOBACCO USE DISORDER 08/20/2013 DEBBIE MECHANICAL OPERATOR, YOUSIF S 305.1 NONDEPENDENT TOBACCO USE DISORDER 08/20/2013 DEBBIE MECHANICAL OPERATOR, YOUSIF S 305.1 NONDEPENDENT TOBACCO USE DISORDER 08/20/2013 DEBBIE MECHANICAL OPERATOR, YOUSIF S 305.1 NONDEPENDENT TOBACCO USE DISORDER 08/20/2013 DEBBIE SAAB, YOUSIF S 305.1 NONDEPENDENT TOBACCO USE DISORDER 03/28/2014 YOUSIF LEWISP Ot V76.12 04/21/2014 YOUSIF LEWIS ENGRAVER PICTURE Ot V76.12 06/14/2016 YOUSIF LEWIS ENGRAVER PICTURE Ot V76.12 OTH SCREEN MAMMO-MALIGN NEOPLASM OF ANA 06/14/2016 YOUSIF LEWISP Ot 250.00 DIAB KRISH WO COMPL, TYPE II OR UNSPEC TY 06/14/2016 YOUSIF LEWIS ENGRAVER PICTURE Ot 724.2 LUMBAGO 06/14/2016 YOUSIF LEWISP Ot V76.12 OTH SCREEN MAMMO-MALIGN NEOPLASM OF ANA 06/14/2016 DEBBIE, YOUSIF ENGRAVER PICTURE Ot Z12.31 ENCNTR SCREEN MAMMOGRAM FOR MALIGNANT NE 06/14/2016 YOUSIF LEWIS ENGRAVER PICTURE Ot Z12.31 ENCNTR SCREEN MAMMOGRAM FOR MALIGNANT NE 06/20/2016 YOUSIF LEWIS ENGRAVER PICTURE Ot Z12.31 ENCNTR SCREEN MAMMOGRAM FOR MALIGNANT NE 07/18/2016 YOUSIF LEWIS ENGRAVER PICTURE Ot Z12.31 ENCNTR SCREEN MAMMOGRAM FOR MALIGNANT NE 04/14/2017 YOUSIF LEWIS ENGRAVER PICTURE Ot Z13.820 ENCOUNTER FOR SCREENING FOR OSTEOPOROSIS 04/14/2017 YOUSIF LEWIS ENGRAVER PICTURE Ot V76.12 OTH SCREEN MAMMO-MALIGN NEOPLASM OF ANA 04/14/2017 YOUSIF LEWIS ENGRAVER PICTURE Ot 250.00 DIAB KRISH WO COMPL, TYPE II OR UNSPEC TY 04/14/2017 YOUSIF LEWIS ENGRAVER PICTURE Ot 724.2 LUMBAGO 04/14/2017 YOUSIF LEWIS ENGRAVER PICTURE Ot V76.12 OTH SCREEN MAMMO-MALIGN NEOPLASM OF ANA 04/14/2017 YOUSIF LEWIS ENGRAVER PICTURE Ot Z12.31 ENCNTR SCREEN MAMMOGRAM FOR MALIGNANT NE 04/14/2017 YOUSIF LEWIS ENGRAVER PICTURE Ot Z13.820 ENCOUNTER FOR SCREENING FOR OSTEOPOROSIS 04/17/2017 YOUSIF LEWIS ENGRAVER PICTURE Ot V76.12 OTH SCREEN MAMMO-MALIGN NEOPLASM OF ANA 04/17/2017 YOUSIF LEWIS ENGRAVER PICTURE Ot 250.00 DIAB KRISH WO COMPL, TYPE II OR UNSPEC TY 04/17/2017 YOUSIF LEWIS ENGRAVER PICTURE Ot 724.2 LUMBAGO 04/17/2017 YOUSIF LEWIS ENGRAVER PICTURE Ot V76.12 OTH SCREEN MAMMO-MALIGN NEOPLASM OF ANA 04/17/2017 YOUSIF LEWIS ENGRAVER PICTURE Ot Z12.31 ENCNTR SCREEN MAMMOGRAM FOR MALIGNANT NE 04/17/2017 YOUSIF LEWIS ENGRAVER PICTURE Ot Z13.820 ENCOUNTER FOR SCREENING FOR OSTEOPOROSIS Procedures Code Description [place] [address] ROUTINE VENIPUNCTURE 01/17/2012 57308 A1C (IN-HOUSE) 01/17/2012 76024 MICRO ALBUMIN-IN HOUSE 01/17/2012 21445 CBC 01/17/2012 05353 CMP 01/17/2012 06729 LIPID PANEL 01/17/2012 2359390 GFR CALC (RESULT ONLY) 01/17/2012 92651 MAMMOGRAM, SCREENING 01/18/2012 05572 NAIL REMOVAL PERMANENT ( PARTIAL OR COMPLETE) 03/16/2012 75001 MICRO ALBUMIN-IN HOUSE 07/23/2012 33419 A1C (IN-HOUSE) 07/23/2012 33760 ROUTINE VENIPUNCTURE 12/24/2012 72365 MAMMOGRAM, SCREENING 12/24/2012 45659 A1C (IN-HOUSE) 12/24/2012 44590 CMP 12/24/2012 54730 LIPID PANEL 12/24/2012 4665242 GFR CALC (RESULT ONLY) 12/24/2012 54418 MICRO ALBUMIN-IN HOUSE 04/03/2013 25421 A1C (IN-HOUSE) 04/03/2013 13172 ROUTINE VENIPUNCTURE 04/03/2013 7922984 GFR CALC (RESULT ONLY) 04/03/2013 37358 CMP 04/03/2013 58390 LIPID PANEL 04/03/2013 89925 MICROALBUMIN 04/03/2013 16808 A1C (IN-HOUSE) 08/20/2013 68540 MAMMOGRAM, SCREENING 12/03/2013 70827 A1C (IN-HOUSE) 12/03/2013 81284 MICRO ALBUMIN-IN HOUSE 12/03/2013 70894 MICROALBUMIN 12/03/2013 57150 MRI SPINE (LUMBAR) W/O CONTRAST 12/19/2013 Results There is no data. Encounters ACCT No. Visit Date/Time Discharge Status Pt. Type Provider Facility Loc./Unit Complaint [id number] 04/12/2017 13:56:00 04/12/2017 23:59:59 CLS Preadmit YOUSIF LEWIS [facility] REHAB LOWER EXTREMITY WEAKNESS [id number] 04/12/2017 10:26:00 04/12/2017 23:59:59 CLS Preadmit YOUSIF LEWIS [facility] RAD Z13.820 ENCOUNTER FOR SCREENING FOR OSTEOPOROSIS [id number] 06/14/2016 10:04:00 06/14/2016 23:59:59 CLS Outpatient YOUSIF LEWIS [facility] RAD SCREENING [id number] 03/27/2014 09:55:00 03/27/2014 23:59:59 CLS Outpatient DEBBIE, YOUSIF ENGRAVER PICTURE [facility] RAD SCREENING [id number] 12/19/2013 08:41:00 12/19/2013 23:59:59 CLS Outpatient DEBBIE, YOUSIF ENGRAVER PICTURE [facility] RAD LBP [id number] 01/31/2013 08:32:00 01/31/2013 23:59:59 CLS Outpatient DEBBIE, YOUSIF ENGRAVER PICTURE [facility] RAD ROUTINE [id number] 06/14/2016 10:01:00 Document Registration [id number] 03/24/2012 15:24:00 Document Registration [id number] 04/09/2014 09:15:00 04/09/2014 23:59:59 CLS Outpatient DEBBIE MECHANICAL OPERATOR, YOUSIF S [id number] 04/09/2014 09:15:00 04/09/2014 23:59:59 CLS Outpatient DEBBIE MECHANICAL OPERATOR, YOUSIF S [id number] 12/03/2013 09:21:00 12/03/2013 23:59:59 CLS Outpatient DEBIBE MECHANICAL OPERATOR, YOUSIF S [id number] 12/03/2013 09:21:00 12/03/2013 23:59:59 CLS Outpatient DEBBIE MECHANICAL OPERATOR, YOUSIF S [id number] 08/20/2013 08:54:00 08/20/2013 23:59:59 CLS Outpatient DEBBIE MECHANICAL OPERATOR, YOUSIF S [id number] 08/20/2013 08:54:00 08/20/2013 23:59:59 CLS Outpatient DEBBIE MECHANICAL OPERATOR, YOUSIF S [id number] 04/03/2013 08:22:00 04/03/2013 23:59:59 CLS Outpatient DEBBIE MECHANICAL OPERATOR, YOUSIF S [id number] 04/03/2013 08:22:00 04/03/2013 23:59:59 CLS Outpatient DEBBIE MECHANICAL OPERATOR, YOUSIF S [id number] 12/24/2012 08:46:00 12/24/2012 23:59:59 CLS Outpatient DEBBIE MECHANICAL OPERATOR, YOUSIF S [id number] 12/24/2012 08:46:00 12/24/2012 23:59:59 CLS Outpatient DEBBIE MECHANICAL OPERATOR, YOUSIF S [id number] 03/15/2012 13:14:00 03/15/2012 23:59:59 CLS Outpatient YOUSIF LEWIS APRN [id number] 01/17/2012 13:16:26 01/17/2012 23:59:59 CLS Outpatient YOUSIF LEWIS APRN [id number] 07/23/2012 10:02:00 Document Registration [id number] 07/23/2012 10:02:00 Document Registration
[2017-05-08 10:48] VITALS: BP 143/85
[2017-05-08] MEDS ORDERED: MIDAZOLAM 2 MG/2 ML (VERSED) VIAL ONE ×4 (11:43→12:15)
--- NOTE | 2017-05-08 11:43 | Conscious Sedation/ASA ---
Conscious Sedation Pre-Proced Time Reviewed: 11:43 ASA Class: 2 Airway Mallampati Classification: ([place] appropriate class) I. II. III, IV Lungs Heart ASA score ASA 1: a normal healthy patient ASA 2: a patient with a mild systemic disease (mid diabetes, controlled hypertension, obesity ASA 3: a patient with a severe systemic disease that limits activity (angina , COPD, prior Myocardial infarction) ASA 4: a patient with an incapacitating disease that is a constant threat to life (CHF, renal failure) ASA 5: a moribund patient not expected to survive 24 hrs. (ruptured aneurysm) ASA 6: a declared brain patient whose organs are being harvested. For emergent operations, add the letter E after the classification Grade 2 Sedation Plan: Discussed options with patient/fam Note The patient is an appropriate candidate to undergo the planned procedure, sedation, and anesthesia. The patient immediately re-assessed prior to indication. ZAHRA ARREAGA MD May 08, 2017 11:43 am
--- NOTE | 2017-05-08 11:43 | History & Physicial ---
History of Present Illness History of Present Illness Reason for visit/HPI to undergo colonoscopy in view of a positive to Cologuard test Date of Admission 05/08/17 Date Seen by Provider: May 08, 2017 Time Seen by Provider: 11:40 I consulted on this patient on 05/08/17 11:39 Attending Physician Zahra Arreaga MD Admitting Physician Negra Medina Consult Allergies and Home Medications Allergies Coded Allergies: No Known Drug Allergies (Unverified , 05/02/17) Home Medications Aspirin 81 Mg Tab.chew, 81 MG PO DAILY, (Reported) Atorvastatin Calcium 20 Mg Tablet, 20 MG PO DAILY, (Reported) Exenatide Microspheres 2 Mg Vial, 2 MG SQ WEEKLY, (Reported) Lisinopril 20 Mg Tablet, 20 MG PO DAILY, (Reported) Tramadol HCl 50 Mg Tablet, 50 MG PO BID, (Reported) Past [id number] Hx Patient Social History Marrital Status: Employed/Student: retired Alcohol Use: Denies Use Recreational Drug Use: No Smoking Status: Current Everyday Smoker Type Used: Cigarettes Recent Foreign Travel: No Contact w/other who traveled: No Recent Hopitalizations: No Recent Infectious Disease Expo: No Immunizations Up To Date Date of Pneumonia Vaccine: Mar 14, 2016 Date of Influenza Vaccine: Dec 26, 2016 Seasonal Allergies Seasonal Allergies: Yes Surgeries Yes Gallbladder, Hysterectomy Respiratory No Cardiovascular Yes High Cholesterol Reproductive System : Yes Hx Reproductive Disorders: No Sexually Transmitted Disease: No HIV/AIDS: 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 Gastrointestinal Yes Chronic Constipation Musculoskeletal Yes Arthritis, Chronic Back Pain Endocrine History of Endocrine Disorders: Yes Endocrine Disorders: Diabetes, Non-Insulin dep HEENT History of HEENT Disorders: No Loss of Vision: Bilateral Hearing Impairment: Denies Psychosocial Behavioral Health Disorders: Depression Blood Transfusions Adverse Reaction to a Blood Tr: No (N/A) Constitutional: no symptoms reported EENTM: no symptoms reported Respiratory: no symptoms reported Cardiovascular: no symptoms reported Gastrointestinal: no symptoms reported Genitourinary: no symptoms reported Musculoskeletal: no symptoms reported Skin: no symptoms reported Psychiatric/Neurological: No Symptoms Reported Physical Exam Vital Signs Vital Signs - First Documented 05/08/17 10:48 Temp 99.3 Pulse 77 Resp 16 B/P (MAP) 143/85 (104) Pulse Ox 94 O2 Delivery Room Air Capillary Refill : General Appearance: No Apparent Distress Neck: Normal Inspection Respiratory: Lungs Clear Cardiovascular: Regular Rate, Rhythm Gastrointestinal: Non Tender, Soft Rectal: Deferred Extremity: Normal Inspection Neurologic/Psychiatric: Oriented x3 Skin: Normal Color, Warm/Dry Assessment/Plan Assessment and Plan lady with a positive screening test for polyp/colon cancer. For colonoscopy Problems: ZAHRA ARREAGA MD May 08, 2017 11:43 am
[2017-05-08] MEDS ORDERED: fentaNYL INJECTION 100 MCG/2 ML AMP ONE (11:44)
[2017-05-08] MEDS: fentaNYL INJECTION 100 MCG/2 ML AMP IVP PRN ×2 (12:05→12:25)
[2017-05-08] MEDS: MIDAZOLAM 2 MG/2 ML (VERSED) VIAL IVP PRN ×4 (12:07→12:20)
--- NOTE | 2017-05-08 12:41 | Endo Procedure Record ---
Endo Procedure Report Date of Procedure Last Colonoscopy: Yes (2005) May 08, 2017 Surgeon (s) ZAHRA ARREAGA MD Post Procedure/Op Diagnosis 1 mm polyp at the distal rectum Extensive diverticulosis 1 mm polyp at the ascending colon, close to the cecum Procedure Performed Colonoscopy to cecum Hot biopsy polypectomy 2 Description of Procedure Anesthesia Type: Conscious Sedation Specimen(s) collected/removed polyps 2 Description of the Procedure Indication for the procedure: This lady was found to have a positive [place] guard test. In addition, she reported a family history of colon cancer. Therefore, colonoscopy was felt to be appropriate. Informed consent was obtained after reviewing the procedure in detail. Description of the procedure: She was placed in left lateral decubitus position and her vital signs were monitored. Conscious sedation was achieved using Versed and fentanyl. Digital rectal examination was unremarkable. The colonoscope was then introduced in the rectum and advanced with some difficulty to the cecum. The scope was then withdrawn slowly and the mucosa examined in a systematic fashion. Findings: 1. 1 mm distal rectal polyp, that was excised with hot biopsy forceps 2. Extensive diverticulosis 3. 1 mm polyp at the ascending colon, adjacent to the cecum, was excised with a heart biopsy forceps She tolerated the procedure well and was taken back to the nursing area in a stable condition. Impression: Family history of colon cancer. Positive cologuard test. 2 small polyps excised. Recommend repeating in 3 years. Copies To: CINDY CHAVIS XAVIER M MD May 08, 2017 12:41 pm
--- NOTE | 2017-05-08 12:42 | Discharge Inst-Simple/Standard ---
Discharge Inst-Standard Discharge Medications New, Converted or Re-Newed RX: Other Patient Instructions/Follow Up Plan of Care/Instructions/FU: Repeat colonoscopy in 3 years Activity as Tolerated: Yes Discharge Diet: No Restrictions ZAHRA ARREAGA MD May 08, 2017 12:42 pm
[2017-05-08 12:50] VITALS: BP 161/82
[2017-05-08 13:20] VITALS: BP 138/78
[2017-05-08 13:30] VITALS: BP 138/78
== END 2017-05-08 13:30 | disposition home or self-care (01) ==
LOC: ENDO 10:04
PROVIDERS: ATTEND Surgery
DX: K62.1 Rectal polyp (principal); K63.5 Polyp of colon; D12.2 Benign neoplasm of ascending colon; K57.30 Diverticulosis of large intestine without perforation or abscess without bleeding; Z80.0 Family history of malignant neoplasm of digestive organs; Z79.82 Long term (current) use of aspirin; Z79.899 Other long term (current) drug therapy; F17.210 Nicotine dependence, cigarettes, uncomplicated; E78.00 Pure hypercholesterolemia, unspecified; E11.9 Type 2 diabetes mellitus without complications; F32.9 Major depressive disorder, single episode, unspecified; K59.09 Other constipation

== ENCOUNTER → 2018-07-19 | Outpatient (CLI) | payer MEDICARE, MEDICAID ==
--- NOTE | 2018-07-19 21:15 | Diagnostic Imaging Report ---
INDICATION: Routine screening. Comparison is made with prior mammogram from 07/03/2017 and 06/14/2016. 2-D and 3-D bilateral screening mammography was performed with a Computer Aided Detection (CAD) system. FINDINGS: Scattered fibroglandular densities are identified bilaterally. Benign-appearing parenchymal and vascular calcifications are noted bilaterally. Benign-appearing nodules in the right breast are stable. No new mass or malignant appearing microcalcifications are seen. Axillae are unremarkable. IMPRESSION: No mammographic features suspicious for malignancy are identified. ACR BI-RADS Category 2: Benign findings. Result letter will be mailed to the patient. Note: At least 10% of breast cancer is not imaged by mammography. Dictated by: Dictated on workstation # [id number]
== END ==
LOC: RAD 10:20
PROVIDERS: ATTEND Nurse Practitioner Community Health
DX: Z12.31 Encounter for screening mammogram for malignant neoplasm of breast (principal); N95.1 Menopausal and female climacteric states
CPT/HCPCS: 77067

== ENCOUNTER → 2020-06-09 | Outpatient (CLI) | payer MEDICARE, MEDICAID ==
[~2020-06-09] MED LIST changes: -LISI-552 PO; +LISI20TA26 PO; +TRM50T PO
--- NOTE | 2020-06-09 12:00 | Diagnostic Imaging Report ---
INDICATION: Postmenopausal. COMPARISON: There are no prior studies available for comparison. FINDINGS: The bone mineral density of the hips and spine and femoral necks was measured. The total T-score for the spine is 0.3. This value is within normal limits. The total T-score for the left hip is -1.0 and for the right hip -0.4. These values are also within normal limits, although the T-score for the left hip is at the lowest end of normal. The T-score for the left femoral neck is -2.1 and for the right femoral neck -1.6. These values indicate osteopenia. AP Spine L1-L4: [BMD (g/cm2): 1.230] [T-Score: 0.3] [Z-Score: 1.4] [BMD Previous: na] [BMD % Change: na] LT Hip Neck: [BMD (g/cm2): 0.747] [T-Score: -2.1] [Z-Score: -0.7] LT Hip Total: [BMD (g/cm2):0.882] [T-Score:-1.0] [Z-Score: 0.1] [BMD Previous: na] [BMD % Change: na] RT Hip Neck: [BMD (g/cm2):0.816] [T-Score:-1.6] [Z-Score:-0.2] RT Hip Total: [BMD (g/cm2):0.956] [T-score:-0.4] [Z-Score:0.7] [BMD Previous:na] [BMD % Change:na] *Indicates significant change from prior examination based on 95% confidence level. World Health Organization criteria for BMD interpretation classify patients as Normal (T-score at or above -1.0), Osteopenic (T-score between -1.0 and -2.5) or Osteoporotic (T-score at or below -2.5). LIMITATIONS AND MODIFICATION: None. FRACTURE RISK (FRAX SCORE): The ten year probability of (%): Major Osteoporotic Fracture: [12.8] Hip Fracture: [4.1] IMPRESSION: 1. There is osteopenia of the femoral necks. However the bone mineral density of the spine and hips is within normal limits. 2. 3. See below National Osteoporosis Foundation guidelines on when to potentially initiate pharmacologic therapy. Based on the National Osteoporosis Foundation Guidelines, pharmacologic treatment should be initiated in any of the following, unless clinical conditions suggest otherwise: * Any patient with prior fragility fracture of the hip or vertebrae. A spine fracture indicates 5X risk for subsequent spine fracture and 2X risk for subsequent hip fracture. * Osteoporosis (T-score <-2.5). * Postmenopausal women and men age 50 and older with low bone mass/osteopenia (T-score between -1.0 and -2.5) by DXA and 10-year major osteoporotic fracture greater than 20% or a 10-year probability of hip fracture greater than 3%. These fracture risks are supplied above in the FRAX score, if applicable. * Clinician judgement and/or patient preferences may indicate treatment for people with 10-year fracture probabilities above or below these levels. Dictated by: Dictated on workstation # [id number]
--- NOTE | 2020-06-10 07:18 | Diagnostic Imaging Report ---
EXAMINATION: Digital mammogram INDICATION: Bilateral screening This study was compared to the prior exam of 07/19/2018, 07/03/2017 and 06/14/2016. At this time there are no current complaints. The fibroglandular tissue in both breasts is heterogeneously dense. This does limit the sensitivity of this exam. Overall, there has been no significant change since the prior study. The benign-appearing partially calcified nodular asymmetry deep in the medial aspect of the right breast in the 3 o'clock position roughly 9 cm from the nipple seen previously is again evident and does not appear to have changed significantly. There is no primary or secondary sign of malignancy noted. IMPRESSION: There is no evidence of malignancy. ACR BI-RADS Category 1: Negative. Result letter will be mailed to the patient. Note: At least 10% of breast cancer is not imaged by mammography. Dictated by: Dictated on workstation # [id number]
== END ==
LOC: RAD 10:01
PROVIDERS: ATTEND Pediatrics
DX: Z12.31 Encounter for screening mammogram for malignant neoplasm of breast (principal); E11.65 Type 2 diabetes mellitus with hyperglycemia; M85.852 Other specified disorders of bone density and structure, left thigh; M85.851 Other specified disorders of bone density and structure, right thigh; Z78.0 Asymptomatic menopausal state
CPT/HCPCS: 77063; 77067; 77080

== ENCOUNTER → 2020-08-19 | Outpatient (CLI) | payer MEDICARE, MEDICAID ==
--- NOTE | 2020-08-19 14:53 | Diagnostic Imaging Report ---
CT Lung Screening INDICATION: Current smoker with 40 pack year smoking history for baseline low-dose CT screening. TECHNIQUE: Noncontrast, low-dose CT imaging performed according to the lung cancer screening protocol. Auto Exposure Controls were utilize during the CT exam to meet ALARA standards for radiation dose reduction. COMPARISON: Baseline. FINDINGS: There is symmetrical air trapping and features of centrilobular emphysema most pronounced in the apices FINDINGS: There are linear rate subcentimeter perilymphatic nodules in the right lower lobe along the margins of a pulmonary arterial branch, the largest of these distally measured 6.5 mm and they are subpleural in location. It measures soft tissue in density. No other lung mass. No spiculated lesion. No thoracic lymphadenopathy. These findings of centrilobular emphysema are most pronounced in the apices. No effusion, pneumothorax or chest wall pathology. There is nonaneurysmal atherosclerotic vascular calcifications. Visualized upper abdomen is nonacute. IMPRESSION: Subcentimeter adjacent linearly arrayed right lower lobe perivascular nodules along the margins of the pulmonary arterial branch. While benignity is suggested, given the presentation at baseline exam, follow-up CT in six months time recommended for this likely benign finding. LUNG-RADS CATEGORY: Lung RADS category 3 MODIFIER: None OTHER SIGNIFICANT FINDINGS: 1. Centrilobular emphysema without findings of pneumonia or pleural pathology. 2. Nonaneurysmal atherosclerotic vascular calcifications. Dictated by: Dictated on workstation # [id number]
== END ==
LOC: RAD 12:15
PROVIDERS: ATTEND Pediatrics
DX: Z12.2 Encounter for screening for malignant neoplasm of respiratory organs (principal); I25.10 Atherosclerotic heart disease of native coronary artery without angina pectoris; J43.9 Emphysema, unspecified; R91.8 Other nonspecific abnormal finding of lung field; F17.210 Nicotine dependence, cigarettes, uncomplicated
CPT/HCPCS: 71271

== ENCOUNTER → 2022-01-03 | Outpatient (CLI) | payer MEDICAID, MEDICARE ==
--- NOTE | 2022-01-04 13:15 | Diagnostic Imaging Report ---
Indication: Lung mass. Serum blood glucose levels at the time of injection was 101 mg/dL. Patient was administered 12.6 mCi F-18 FDG intravenously in the right antecubital location and whole-body PET imaging was performed. In addition, noncontrast CT was performed for attenuation correction and anatomic correlation. No prior PET/CT studies are available for comparison. Comparison is made with a low-dose chest CT from 08/19/2020. There is symmetric activity throughout the brain. Soft tissues of the neck are unremarkable. There is a lymph node in the right low paratracheal location which does show some uptake with an SUV max of 3.9. There is also right hilar uptake measuring SUV of 3.7. A lymph node in the right lower lobe does appear to be increased in size measuring 13 mm compared with 7 mm. This demonstrates borderline activity with SUV max of approximately 3. No other pulmonary parenchymal areas of hypermetabolism are identified. Abdomen and pelvis demonstrate physiologic activity throughout the gastrointestinal and genitourinary tract. The lower extremities are unremarkable. IMPRESSION: 1. Enlarging right lower lobe pulmonary nodule demonstrating borderline metabolism, concerning for small lung malignancy. There is also some borderline activity within the right hilum and right paratracheal mediastinum concerning for metastatic lymph nodes. No other abnormal areas of hypermetabolism are identified. Dictated by: Dictated on workstation # [id number]
== END ==
LOC: RAD 12:30
PROVIDERS: ATTEND Pediatrics
DX: R91.1 Solitary pulmonary nodule (principal); R91.8 Other nonspecific abnormal finding of lung field
CPT/HCPCS: 78816; A9552